=== PATIENT | male | born 1970 | race Caucasian/White ===

== ENCOUNTER 2020-12-04 03:11 | Emergency (ER) | payer BC, OTHER ==
[~2020-12-04] VITALS: Ht 67 cm; Wt 88.5 kg
--- NOTE | 2020-12-04 03:29 | ED EENT ---
History of Present Illness General Stated Complaint: FORIEGN OBJECT IN EYE/PAIN Source: patient, family Exam Limitations: no limitations History of Present Illness Date Seen by Provider: Dec 04, 2020 Time Seen by Provider: 03:20 Initial Comments Patient is a 50-year-old male who presents to the emergency department today with a chief complaint of right eye pain and watering. Patient states he has had gradual onset of symptoms over the last for 5 days. He states he was cutting grain last Saturday or Saturday when he thinks possibly something could have flown in his eye. He states he is not having blurry vision just a lot of eye pain and watering. Patient states he has not taken anything for the eye pain. Is not on any daily medications. Cannot recall his last tetanus shot. Does not routinely see a doctor for general health. Is not Covid vaccinated. Timing/Duration: gradual Location: eye (R) Prearrival Treatment: no prearrival treatment Associated Symptoms: denies symptoms Allergies and Home Medications Allergies Coded Allergies: No Known Drug Allergies (Unverified , 12/04/20) Patient Home Medication List Home Medication List Reviewed: Yes Moxifloxacin HCl (Vigamox) 3 Ml Soln, 2 DROPS OP TID Prescribed by: DORA HASTINGS on 12/04/20 0404 Review of Systems Review of Systems Constitutional: see HPI Eyes: Drainage, Foreign Body Sensation, Inflammation, Pain Ears: No Symptoms Reported Respiratory: no symptoms reported Cardiovascular: no symptoms reported Gastrointestinal: no symptoms reported Musculoskeletal: no symptoms reported Skin: no symptoms reported Neurological: No Symptoms Reported All Other Systems Reviewed Negative Unless Noted: Yes Physical Exam Vital Signs Vital Signs - First Documented 12/04/20 03:20 Temp 36.7 Pulse 64 Resp 18 B/P (MAP) 140/105 (117) Pulse Ox 97 O2 Delivery Room Air Height, Weight, BMI Height: '" Weight: lbs. oz. kg; BMI Method: General Appearance: WD/WN, no apparent distress Eyes: right eye other (clear tearing); bilateral eye normal inspection, bilateral eye PERRL, bilateral eye EOMI Nose: normal inspection Mouth/Throat: normal mouth inspection Cardiovascular: normal peripheral pulses, regular rate, rhythm Respiratory: lungs clear, normal breath sounds, no respiratory distress, no accessory muscle use Neurologic/Psychiatric: alert, normal mood/affect, oriented x 3 Skin: normal color, warm/dry Procedures/Interventions Eye : Location: right eye Anesthesia (gtts): Tetracaine Progress/Procedure Conclusion Slit lamp and florescein staining used to evaluate right eye; significant abrasion noted at the 6-9 o'clock position as well as the 3 o'clock position. A tiny speck of foreign body was noted at the 6 oclock position to small to see with the naked eye. Significant ciliary flush noted and conjunctival injection. pterygium noted medially (mild) Progress/Results/Core Measures Results/Orders My Orders Orders - DORA HASTINGS MD Tetracaine 0.5% Ophth Jacki Sdv (Tetracai (12/04/20 03:30) Fluorescein Strips ([id number]) (12/04/20 03:30) Balanced Salt Irrigation Soln (Bss Irrig (12/04/20 03:30) Hydrocodone/Apap 5/325 Tablet (Lortab 5 (12/04/20 04:00) Trimethoprim/Polymyx Ophth Jacki (Polytrim (12/04/20 04:00) Medications Given in ED Current Medications Medications Dose Ordered Sig/La Route Start Time Stop Time Status Last Admin Dose Admin Balanced Salt Solution 15 ml ONCE ONCE IR 12/04/20 03:30 12/04/20 03:31 DC 12/04/20 03:39 15 ML Fluorescein Sodium 1 mg ONCE ONCE OU 12/04/20 03:30 12/04/20 03:31 DC 12/04/20 03:40 1 MG Tetracaine HCl 4 ml ONCE ONCE OU 12/04/20 03:30 12/04/20 03:31 DC 12/04/20 03:40 4 ML Vital Signs/I&O 12/04/20 03:20 Temp 36.7 Pulse 64 Resp 18 B/P (MAP) 140/105 (117) Pulse Ox 97 O2 Delivery Room Air Progress Progress Note : Time: 04:11 Progress Note Patient had almost complete relief with the Tetracaine topically. He was also given a hydrocodone 5mg prior to discharge. Was able to open his eyes and maintains normal visual acuity. Patient strongly recommended to follow up with an eye doctor. Offered a tetanus shot and he declined. Return precautions given. Both he and his verbalized understanding. All questions were sought and answered. Departure Impression Primary Impression: Corneal abrasion Qualified Codes: S05.01XA - Injury of conjunctiva and corneal abrasion without foreign body, right eye, initial encounter Additional Impression: Conjunctivitis Qualified Codes: H10.31 - Unspecified acute conjunctivitis, right eye Disposition: HOME, SELF-CARE Condition: Stable Departure-Patient Inst. Decision time for Depature: 03:58 Referrals: NO,LOCAL PHYSICIAN (PCP/Family) Primary Care Physician Patient Instructions: Corneal Abrasion (DC) Add. Discharge Instructions: Use the Poly-trim antibiotics, 1 drop in the Right eye every 3 hours until you get home and are able to fill the prescription I have sent to the pharmacy. When you get home please fill the antibiotic Drops I have sent to your [facility] in [place] - Vigamox 2 drops 3 times a day for 7 days. Take over the counter Ibuprofen 3 tablets (600mg) every 6 hours with food as needed for pain. Please call and follow up with an eye doctor on Saturday. Return to care if you develop worsening eye pain, fever, green drainage or blurry vision. Scripts Moxifloxacin HCl (Vigamox) 3 Ml Soln 2 DROPS OP TID for 7 Days, #1 EA Prov: DORA HASTINGS MD 12/04/20 Images Eye 1 - Abrasion, Dye uptake (fluorescein) 2 - Abrasion, Dye uptake (fluorescein) 3 - Abrasion 4 - Foriegn Body DORA HASTINGS MD Dec 04, 2020 03:29
[2020-12-04] MEDS ORDERED: FLUORESCEIN (FLUOR-I-STRIPS) 1 MG STRP OU ONE (03:30)
[2020-12-04] MEDS ORDERED: TETRACAINE 0.5% OPHTH SOLN 4 ML BTL (SINGLE DOSE ONLY) OU ONE (03:30)
[2020-12-04] MEDS ORDERED: BSS 15 ML IR ONE (03:30)
[2020-12-04] MEDS ORDERED: POLY/TRIMETH (POLYTRIM) OPHTH 10 ML BTL OU ONE (04:00)
[2020-12-04] MEDS ORDERED: HYDROcodone/APAP 5 MG/325 MG (LORTAB) TAB PO ONE (04:00)
[2020-12-04] MEDS ORDERED: VIGAMOX OP (04:04)
[2020-12-04 04:27] VITALS: BP 140/105
== END 2020-12-04 04:41 | disposition home or self-care (01) ==
LOC: ER 03:16
DX: S05.01XA Injury of conjunctiva and corneal abrasion without foreign body, right eye, initial encounter (principal); H10.9 Unspecified conjunctivitis; X58.XXXA Exposure to other specified factors, initial encounter
CPT/HCPCS: 99283